=== PATIENT | male | born 1985 | race Caucasian/White ===

== ENCOUNTER 2019-02-26 15:01 | Inpatient (IN) | payer BC ==
[2019-02-26] MEDS ORDERED: ACETAMINOPHEN TAB 325 MG TAB PO PRN (16:06)
[2019-02-26] MEDS ORDERED: ZIPRASIDONE 20 MG VIAL IM PRN (16:06)
[2019-02-26] MEDS ORDERED: MAG HYDROX/AL HYDROX/SIMETH 30 ML CUP PO PRN (16:06)
[2019-02-26] MEDS ORDERED: MAGNESIUM HYDROXIDE 2,400 MG/10 ML CUP PO PRN (16:06)
[2019-02-26] MEDS ORDERED: LORazepam 1 MG TAB PO PRN (16:06)
[2019-02-26] MEDS: lamoTRIgine 100 MG TAB PO SCH (22:13)
[2019-02-27] MEDS ORDERED: SERTRALINE 100 MG TAB PO SCH (09:00)
[2019-02-27] MEDS: NICOTINE 14MG/24HR PATCH TRANSDERM SCH (09:08)
[2019-02-27] MEDS: lamoTRIgine 100 MG TAB PO SCH ×2 (09:08→20:42)
[2019-02-27 09:13] LABS: Basophils % (A) 0 %; Eosinophils # (A) 0.1 k/uL (0-0.7); Eosinophils % (A) 2 %; HCT 51.5 % (39.0-53.0); HGB 17.4 gm/dL (13.0-17.5); Lymphocytes % (A) 31 %; MCH 31.5 pg (25.0-35.0); MCHC 33.8 g/dL (31.0-37.0); MCV 93.2 fL (80.0-100.0); Mean Platelet Volume 6.9; Monocytes # (A) 0.5 k/uL (0-1.0); Monocytes % (A) 8 %; Neutrophils # (A) 3.6 k/uL (1.3-7.7); Neutrophils % (A) 57 %; Platelet Count 226 k/uL (150-450); RBC 5.53 m/uL (4.30-5.90); RDW 12.3 % (11.5-15.5); WBC 6.3 k/uL (3.8-10.6)
[2019-02-27 09:53] LABS: ALT 66 U/L (21-72); AST 33 U/L (17-59); African American GFR (CKD) >90 (>60 ml/min/1.73 sqM); Albumin 4.9 g/dL (3.5-5.0); Alkaline Phosphatase 68 U/L (38-126); Anion Gap 9 mmol/L; Bilirubin, Delta 0.1 mg/dL (0.0-0.2); Bilirubin,Unconjugated 0.5 mg/dL (0.0-1.1); Blood Urea Nitrogen 10 mg/dL (9-20); Calcium 9.6 mg/dL (8.4-10.2); Carbon Dioxide 26 mmol/L (22-30); Chloride 107 mmol/L (98-107); Cholesterol 220 mg/dL (<200); Glucose 97 mg/dL (74-99); HDL Cholesterol 37 mg/dL (40-60); Potassium 4.5 mmol/L (3.5-5.1); Sodium 142 mmol/L (137-145); Total Bilirubin 0.6 mg/dL (0.2-1.3); Triglycerides 405 mg/dL (<150)
[2019-02-27] MEDS: BREXPIPRAZOLE 4 MG PO SCH ×2 (10:09→11:30)
--- NOTE | 2019-02-27 13:33 | P.HP ---
Psychiatric H&P - . H&P Date: 02/27/19 History & Physical: Allergies Allergy/AdvReac Type Severity Reaction Status Date / Time No Known Allergies Allergy Verified 02/26/19 17:04 Vital Signs Temp 97.5 F L 02/27/19 06:59 Pulse 62 02/27/19 06:59 Resp 12 02/27/19 06:59 BP 136/63 02/27/19 06:59 Pulse Ox 99 02/26/19 15:33 Intake & Output 02/26/19 02/27/19 02/27/19 18:59 06:59 18:59 Weight 92.079 kg Laboratory Last Values WBC 6.3 k/uL (3.8-10.6) 02/27/19 09:02 RBC 5.53 m/uL (4.30-5.90) 02/27/19 09:02 Hgb 17.4 gm/dL (13.0-17.5) 02/27/19 09:02 Hct 51.5 % (39.0-53.0) 02/27/19 09:02 MCV 93.2 fL (80.0-100.0) 02/27/19 09:02 MCH 31.5 pg (25.0-35.0) 02/27/19 09:02 MCHC 33.8 g/dL (31.0-37.0) 02/27/19 09:02 RDW 12.3 % (11.5-15.5) 02/27/19 09:02 Plt Count 226 k/uL (150-450) 02/27/19 09:02 Neutrophils % 57 % 02/27/19 09:02 Lymphocytes % 31 % 02/27/19 09:02 Monocytes % 8 % 02/27/19 09:02 Eosinophils % 2 % 02/27/19 09:02 Basophils % 0 % 02/27/19 09:02 Neutrophils # 3.6 k/uL (1.3-7.7) 02/27/19 09:02 Lymphocytes # 2.0 k/uL (1.0-4.8) 02/27/19 09:02 Monocytes # 0.5 k/uL (0-1.0) 02/27/19 09:02 Eosinophils # 0.1 k/uL (0-0.7) 02/27/19 09:02 Basophils # 0.0 k/uL (0-0.2) 02/27/19 09:02 Sodium 142 mmol/L (137-145) 02/27/19 09:02 Potassium 4.5 mmol/L (3.5-5.1) 02/27/19 09:02 Chloride 107 mmol/L (98-107) 02/27/19 09:02 Carbon Dioxide 26 mmol/L (22-30) 02/27/19 09:02 Anion Gap 9 mmol/L 02/27/19 09:02 BUN 10 mg/dL (9-20) 02/27/19 09:02 Creatinine 1.01 mg/dL (0.66-1.25) 02/27/19 09:02 Est GFR (CKD-EPI)AfAm >90 (>60 ml/min/1.73 sqM) 02/27/19 09:02 Est GFR (CKD-EPI)NonAf >90 (>60 ml/min/1.73 sqM) 02/27/19 09:02 Glucose 97 mg/dL (74-99) 02/27/19 09:02 Calcium 9.6 mg/dL (8.4-10.2) 02/27/19 09:02 Total Bilirubin 0.6 mg/dL (0.2-1.3) 02/27/19 09:02 Conjugated Bilirubin 0.0 mg/dL (0.0-0.3) 02/27/19 09:02 Unconjugated Bilirubin 0.5 mg/dL (0.0-1.1) 02/27/19 09:02 Delta Bilirubin 0.1 mg/dL (0.0-0.2) 02/27/19 09:02 AST 33 U/L (17-59) 02/27/19 09:02 ALT 66 U/L (21-72) 02/27/19 09:02 Alkaline Phosphatase 68 U/L (38-126) 02/27/19 09:02 Total Protein 8.0 g/dL (6.3-8.2) 02/27/19 09:02 Albumin 4.9 g/dL (3.5-5.0) 02/27/19 09:02 Triglycerides 405 mg/dL (<150) H 02/27/19 09:02 Cholesterol 220 mg/dL (<200) H 02/27/19 09:02 LDL Cholesterol, Calc mg/dL (0-99) 02/27/19 09:02 HDL Cholesterol 37 mg/dL (40-60) L 02/27/19 09:02 TSH 0.841 mIU/L (0.465-4.680) 02/27/19 09:02 02/27/19 13:22 Identification: Patient is a 33-year-old male who is referred directly from his private psychiatrist's office due to increasing paranoid ideation. History of Present Illness: Patient states that he feels that someone at work is having what he describes as a "cold war" where he is sort of being stalked, he states that the coworker texts that the patient and is concerned that he is saying bad things about him in due to these bad comments the coworker may take stuff from him or worse yet that the police may take his home and car. He states that he has worked with this coworker for 13 years and he feels are other coworkers also said bad things to him and are engaging in a cold war against the patient. Patient states that if they do take stuff from him he will have to act and try to hurt them. Patient states that he is afraid the laws will be changed that if people say bad things about him or he is not good then they will take his things from him. Patient is unable to tell me how recently these thoughts became more prominent but states he's had them for a fair period of time. Patient states that his new coworkers are okay is just 3 or 4 coworkers that of been working with him for a number of years at [facility] that he is suspicious of. Patient states that he was initially diagnosed with schizophrenia at the age of 17 when he was admitted to a [facility] with auditory hallucinations d elusional ideation and paranoid ideation. Patient states he was placed on medication at that time and has been on medication since the age of 17. Patient states he has been on multiple antipsychotics in the past including Risperdal, Zyprexa, Seroquel, Latuda and Saphris and states that he is currently on rexulti and feels this is been the most effective for him. Patient states that he has been on Lamictal and the dose has been increased and he had concerns that the increasing dose of Lamictal was perhaps causing his paranoia. Patient states that he is also taking Zoloft because he has felt depressed in the past and has felt suicidal and anxious but denies any of those symptoms currently. Patient states that he sleeps for 4 hours at a time in 2 separate shifts because he works from 10 PM until 7 AM. He states he has been doing this for a number of years and that that has not changed recently. He reports that he is eating well at home. He reported no current suicidal ideation and states that he has never attempted suicide in the past or he reports that he has no current homicidal ideation and has never made any attempts to hurt anyone else. He states that he would only attempt to hurt someone if they took things from him. Patient does not endorse any symptoms of OCD or garima. Past Psychiatric History: Patient has one prior admission to a psychiatric hospital in [place] at the age of 17 and has been tried on multiple medications as stated above. His current medications are rexulti 4 mg in the morning, Zoloft 100 mg in the morning and the patient was taking Lamictal 150 mg in the morning and 100 mg at bedtime. Past Medical/Surgical History: Patient reports no current medical problems and no surgical history Family History: Patient states that he has a maternal uncle and aunt diagnosed with schizophrenia, denies any family history of substance or alcohol abuse and there is no history of completed suicides Social History: Patient was born and raised in [place] and his parents are both alive and he has 2 siblings. Patient states he completed high school and has been taking one class at a time at [employer] online. 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 He reports living alone in a house and takes care of his house drives his own car. He reports never having been and has no children and states he has one close friend. Patient denies any abuse history. Substance Use History: Patient denies any current or prior alcohol or drug use history Legal History: Patient denies Mental status: Appearance/Attitude: Patient is neatly and appropriately dressed, makes eye contact and is cooperative. Behavior: Patient is not displaying any psychomotor agitation or retardation. Speech/Language: Patient's speech is spontaneous of normal volume and rhythm and he is coherent. Thought Process: Patient is goal-directed there is no evidence of loose association or flight of ideas Thought Content: Patient denies any auditory or visual hallucinations but does discuss paranoid ideation regarding coworkers having a "cold war" against him, saying bad things about him and he fears that if people believe these bad things they will take belongings i.e. his house and/or car from him and this is what precipitated his visiting his psychiatrist yesterday and being admitted. Patient states he has had these thoughts for a while but they have been more intense recently. Patient reports that he has been sleeping and eating at home Suicidal/Homicidal Ideation: Patient denies any current suicidal or homicidal ideation Sensorium/Cognition: Patient is alert and oriented to person, place, and time and his recent and remote memory are grossly intact Mood/Affect: Patient's mood is restricted and his affect is slightly blunted Insight/Judgment: Patient's insight and judgment are fair Intellectual Functioning: Patient's intellectual functioning appears average Strength/Weakness: Patient is employed, has housing has been compliant with treatment and medication Assessment: Patient presents after having increasing paranoid ideation that coworkers are saying bad things about him that cause him to lose his home, house and other belongings and the patient states that should people take things from him he may have to retaliate. Patient states that he went to see his private psychiatrist because of these thoughts and was admitted to the hospital. Patient has been treated for schizophrenia and states that his current regimen of medications have been working well for him but was concerned that the Lamictal may have made him more paranoid. Patient is not endorsing any current depressive or anxiety symptoms. Patient had no plan to act on his thoughts of trying to hurt other people if they took things from him stating that that was only going to occur if things were taken from him. Patient states he has been compliant with medication and he has been working full-time at [facility]. Admission Diagnosis: Schizophrenia Plan: Patient was admitted on a voluntary basis, placed on routine observation and group and activity therapy were ordered. Patient was also ordered routine laboratory studies as well as a medical consultation. I spoke with his private psychiatrist regarding adjustment to his medications and we discussed increasing his Zoloft to 150 mg to see if this would assist in decreasing some of his anxiety about his coworkers as well as decreasing his Lamictal to 100 mg twice a day due to the patient's concerns that this is made him more suspicious and paranoid. Patient will also continue on Rexulti 4 mg in the morning as the patient feels that this is been beneficial for him. Patient and I reviewed the use and side effects of the medication and he was agreeable with this plan. Patient requires hospitalization to further stabilize his psychotic symptoms.
[2019-02-27 15:07] VITALS: BMI 31.8
--- NOTE | 2019-02-27 16:10 | P.CONS ---
History of Present Illness - Reason for Consult Hyperlipidemia - History of Present Illness 34-year-old male who was admitted seconded floor because of acute psychosis and schizophrenia. Patient had any fever chills nausea vomiting abdominal pain patient has a highly elevated the triglycerides because of which are calculated LDL is not available. Dietary counseling was provided no further intervention i s necessary for Hypertriglyceridemia except for dietary modifications. Patient's lipid profile fasting need to be checked in about a month after dietary interventions. Review of Systems REVIEW OF SYSTEMS: CONSTITUTIONAL: No fever, no malaise, no fatigue. HEENT: No recent visual problems or hearing problems. Denied any sore throat. CARDIOVASCULAR: No chest pain, orthopnea, PND, no palpitations, no syncope. PULMONARY: No shortness of breath, no cough, no hemoptysis. GASTROINTESTINAL: No diarrhea, no nausea, no vomiting, no abdominal pain. NEUROLOGICAL: No headaches, no weakness, no numbness. HEMATOLOGICAL: Denies any bleeding or petechiae. GENITOURINARY: Denies any burning micturition, frequency, or urgency. MUSCULOSKELETAL/RHEUMATOLOGICAL: Denies any joint pain, swelling, or any muscle pain. ENDOCRINE: Denies any polyuria or polydipsia. The rest of the 14-point review of systems is negative. Past Medical History Past Medical History: No Reported History Additional Past Medical History / Comment(s): schizophrenia History of Any Multi-Drug Resistant Organisms: None Reported Past Surgical History: No Surgical Hx Reported Past Anesthesia/Blood Transfusion Reactions: No Reported Reaction Past Psychological History: Schizophrenia Smoking Status: Never smoker - Past Family History Mother Family Medical History: No Reported History Additional Family Medical History / Comment(s): depression Father Family Medical History: Hyperlipidemia, Hypertension Medications and Allergies Home Medications Medication Instructions Recorded Confirmed Type Brexpiprazole [Rexulti] 4 mg PO DAILY 02/26/19 02/27/19 History Sertraline [Zoloft] 100 mg PO DAILY 02/26/19 02/27/19 History lamoTRIgine [LaMICtal] 100 mg PO DAILY 02/26/19 02/27/19 History lamoTRIgine [LaMICtal] 150 mg PO QAM 02/26/19 02/27/19 History Allergies Allergy/AdvReac Type Severity Reaction Status Date / Time No Known Allergies Allergy Verified 02/26/19 17:04 Physical Exam Vitals: Vital Signs Temp Pulse Resp BP 02/27/19 06:59 97.5 F L 62 12 136/63 PHYSICAL EXAMINATION: GENERAL: The patient is alert and oriented x3, not in any acute distress. Well developed, well nourished. HEENT: Pupils are round and equally reacting to light. EOMI. No scleral icterus. No conjunctival pallor. Normocephalic, atraumatic. No pharyngeal erythema. No thyromegaly. CARDIOVASCULAR: S1 and S2 present. No murmurs, rubs, or gallops. PULMONARY: Chest is clear to auscultation, no wheezing or crackles. ABDOMEN: Soft, nontender, nondistended, normoactive bowel sounds. No palpable organomegaly. MUSCULOSKELETAL: No joint swelling or deformity. EXTREMITIES: No cyanosis, clubbing, or pedal edema. NEUROLOGICAL: Gross neurological examination did not reveal any focal deficits. SKIN: No rashes. Results CBC & Chem 7: 02/27/19 09:02 02/27/19 09:02 Labs: Abnormal Lab Results - Last 24 Hours (Table) 02/27/19 Range/Units 09:02 Triglycerides 405 H (<150) mg/dL Cholesterol 220 H (<200) mg/dL HDL Cholesterol 37 L (40-60) mg/dL Assessment and Plan Plan: -Hypertriglyceridemia: Management as mentioned in the history -Schizophrenia further management as per primary service
[2019-02-27 20:59] LABS: Hemoglobin A1C 5.2 % (4.0-6.0)
[2019-02-28] MEDS: NICOTINE 14MG/24HR PATCH TRANSDERM SCH (09:21)
[2019-02-28] MEDS: lamoTRIgine 100 MG TAB PO SCH ×2 (09:22→20:47)
[2019-02-28] MEDS: SERTRALINE 50 MG TAB PO SCH (09:22)
[2019-02-28] MEDS: BREXPIPRAZOLE 4 MG PO SCH (09:23)
[2019-02-28] MEDS ORDERED: lamoTRIgine 25 MG TAB PO ONE (13:11)
--- NOTE | 2019-02-28 22:55 | PN ---
PROGRESS NOTE DATE OF SERVICE: 02/28/2019 CHIEF COMPLAINT: The patient had paranoid delusions, believing people at work were plotting against him. INTERVAL HISTORY: The patient had a quiet evening last night. He comes out on the unit. He has been appropriate in his interactions. He slept 4 1/2 hours last night. Today he has been up. He will attend most groups. He tends to be quiet in groups, though generally appropriate. Sometimes he can show a fairly bright mood. He continues to believe that his experiences particularly at work are reality. When we discussed these in details mostly he would say that what he anticipates is that in the future some bad things could happen based on influences of others, though he did not say that the nefarious events had in fact occurred. He talked about how there might be some influence on the police that somewhere along the line they may take his house and car. He was able to show a little insight into the idea that most of what seems to be distressing him are things he anticipates in the future. He noted that in concert with his outpatient physician, Dr. Walsh, there was discussion on maximizing his Lamictal. He has been able to be restarted on Rexulti. He appears to tolerate his psychotropic medications. MENTAL STATUS: Patient gave fairly good eye contact. Psychomotor activity was somewhat restless. He answered questions appropriately. His thoughts were clear and coherent. He talked a fair amount about issues that were bothering him especially at work. His affect was intense at times. His mood dysphoric. He seemed moderately distressed. There continued to be references to suspicions of plots and other paranoid themes. He was oriented and alert. Cognition was clear. He was ambulatory with normal gait and strength. There was no tremor, abnormal movements or rigidity. ASSESSMENT: I will continue the current diagnosis and treatment plan. I reviewed medications with the patient. He has been increased on his Zoloft as part of the initial treatment plan. He continues on Rexulti. I will increase his Lamictal from 100 mg twice a day to 150 mg twice a day which he indicated was an option he had talked about with his outpatient psychiatrist. We will continue to focus on stabilization and discharge planning. MMODL / IJN: [id number] /
[2019-03-01] MEDS: NICOTINE 14MG/24HR PATCH TRANSDERM SCH (09:30)
[2019-03-01] MEDS: lamoTRIgine 100 MG TAB PO SCH ×2 (09:31→20:58)
[2019-03-01] MEDS: SERTRALINE 50 MG TAB PO SCH (09:31)
[2019-03-01] MEDS: BREXPIPRAZOLE 4 MG PO SCH (09:32)
--- NOTE | 2019-03-01 22:42 | PN ---
PROGRESS NOTE DATE OF SERVICE: 03/01/2019. CHIEF COMPLAINT: The patient had paranoid delusions, believing people at work were plotting against him. INTERVAL HISTORY: The patient has been doing fair. He had a quiet evening last night. He had tends to keep to himself. He said he slept fairly well today. He has been out. He does attend groups. He seems to do fairly well in groups. He will pay attention. He interacts. He is appropriate in his manner. He can show all. He says that he thinks going up on the Lamictal has helped. He made some comments about how he previously had been on a higher dose of Lamictal along with these other psychotropic and it was unclear whether or not he thought it had helped before. He was not really able to provide specifics. It was noteworthy that as we talked, he made a comment about wanting to address some issues at work. He talked about leaving his job at [employer] mainly because he has had concerns about another worker who he feels harasses him. When I discussed in more detail, he was not clear as to what specific things this worker has done, though he discussed the things that he anticipates this worker could do. We talked about the option that he might look to transfer to another [employer] and then he talked about feeling that he thinks this worker could influence the staff at the other [employer] when he commented about looking for another job in a completely different organization altogether. He then even raised the specter that this person might be able to affect people around him in a negative way no matter where he goes. We talked about this issue as appearing more like a paranoid thinking than anything that would be rational or reasonable. It was not clear he really had insight into his how his thought process may be going awry. He was appropriate in his interactions. In the interview, he reports that he tolerates his psychotropic medications. He wondered about whether there was a different antipsychotic that could do better for him than the Rexulti or possibly in addition to Rexulti. MENTAL STATUS: Patient gave fairly good eye contact. Psychomotor activity was somewhat restless. He answered questions with brief responses. His thoughts were clear. At times, he rambled some. His affect was a little constricted. His mood reserved, but he seemed somewhat distressed. He clearly voiced paranoid delusions in his perceptions about a co-worker. Cognition was clear. ASSESSMENT: I will continue the current diagnosis and treatment plan. I will continue psychotropic medications the same. The patient plans to call his call Dr. Walsh's office tomorrow to see about setting up an appointment. I discussed discharge planning issues and suggested that he might be able to be discharge by mid week. I discussed psychotropic medication issues with the patient including possibly going up higher on his Lamictal as one option. I also talked at length about the possibility of his getting on clozapine. If he has not shown good benefit to other medications that might be an option for him to discuss with Dr. Walsh upon discharge. We will continue to focus on stabilization and discharge planning. BHUMI / MATTN: [id number] /
[2019-03-02] MEDS: BREXPIPRAZOLE 4 MG PO SCH (08:25)
[2019-03-02] MEDS: SERTRALINE 50 MG TAB PO SCH (08:26)
[2019-03-02] MEDS: lamoTRIgine 100 MG TAB PO SCH ×2 (08:27→20:53)
[2019-03-02] MEDS: NICOTINE 14MG/24HR PATCH TRANSDERM SCH (09:03)
--- NOTE | 2019-03-02 11:14 | P.PN ---
Progress Note - Text Progress Note Date: 03/02/19 Interval History: Patient is a 33-year-old male who was seen today and he reports that he thinks the increase in the Lamictal has been helping, patient states that his thoughts about the "cold war" or less intense than they were on Saturday when I saw him. He states that his concerns about coworkers management at [employer] are less than they were but they still are present. He states that he has not had any "outbursts" today so far but states that he may and this is in regard to the cold war that he refers to. Patient states he continues to have suspicions that this coworker saying bad things about him and is concerned that his belongings will be confiscated. He states that these thoughts and concerns are less intense but still present. Mental Status: Appearance/Attitude: Patient is neatly and appropriately dressed, makes eye contact and is cooperative Behavior: Patient does not exhibit any psychomotor agitation or retardation Speech/Language: Patient's speech is spontaneous of normal volume and rhythm and he is coherent Thought Process: Patient is goal-directed there is no evidence of loose association or flight of ideas Thought Content: Patient denies any auditory or visual hallucinations and he continues to verbalize concerns about a "cold war" which he describes as cowor kers and even potentially management at work saying bad things about him that may result in his belongings, home and car being confiscated. He states he has "outbursts" about this and states that this is less frequent with the increase in Lamictal. He now thinks that the Lamictal has been beneficial. Patient reports that he is sleeping and eating well. Suicidal/Homicidal Ideation: Patient denies any current suicidal or homicidal ideation, he states that his outbursts are those times when he is having the thoughts that people are saying bad things against him and that if they do something he may have to retaliate Sensorium/Cognition: Patient is alert and oriented to person, place, and time and his recent and remote memory are grossly intact Mood/Affect: Patient's mood is slightly restricted his affect is slightly blunted Insight/Judgment: Patient's insight and judgment are fair Assessment: Reports that with the Lamictal being increased he now thinks that it is been beneficial. He states that he has outbursts about the "cold war" that coworkers are having against him which he states he thinks is going on but is not sure are less frequent and intense. Patient continues to fear that people are saying bad things about him and that this will result in belongings being confiscated he states he would have to retaliate if that occurred. He states he has no proof that anyone is said bad things about him and is unsure that anyone really has. Patient has been attending groups and activities and reports no difficulties with sleep or appetite Plan: Will continue rexulti 4 mg daily, we'll increase the patient's Zoloft to 200 mg daily to see if this continues to further assist with his concerns as well as for now continue the Lamictal at 300 mg daily as it was just increased o steve the weekend. Patient continues to require hospitalization to further stabilize his psychotic symptoms.
[2019-03-03] MEDS: lamoTRIgine 100 MG TAB PO SCH ×2 (08:44→21:00)
[2019-03-03] MEDS: BREXPIPRAZOLE 4 MG PO SCH (08:44)
[2019-03-03] MEDS: SERTRALINE 100 MG TAB PO SCH (08:44)
[2019-03-03] MEDS: NICOTINE 14MG/24HR PATCH TRANSDERM SCH (08:45)
--- NOTE | 2019-03-03 12:37 | P.PN ---
Progress Note - Text Progress Note Date: 03/03/19 Interval History: Patient is a 33-year-old male who was seen today and he reports that he continues to have thoughts about the "war". States that he doesn't think medication is going to help with this. He states that these thoughts aren't real because there are not currently happening and then stated that as soon as he goes back to work the war will occur. 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 He stated that there were cameras in the store and that they have been spying on him to see if he is doing bad things or saying bad things. Patient stated that he then thought that he should not go back to work and quit his job because then the war wouldn't occur. Mental Status: Appearance/Attitude: Patient is neatly and appropriately dressed, makes eye contact and is cooperative Behavior: Patient does not display any psychomotor agitation or retardation. Speech/Language: Patient's speech is spontaneous of normal volume and rhythm and he is coherent Thought Process: Patient is goal-directed there is no evidence of loose association or flight of ideas Thought Content: Patient denies any auditory or visual hallucination and continues to discuss his concerns about a "war" that will occur if he returns to work, he fears that a coworker and even the merchandising execution manager of the store will say bad things about him which will then cause him to lose longings. Patient states that he knows it's not real now but fears that once he returns to work the war will occur immediately causing the patient to suggest that perhaps he should quit his job. Patient is eating and slept about 5 hours last night. Suicidal/Homicidal Ideation: Patient denies any current suicidal or homicidal ideation Sensorium/Cognition: Patient is alert and oriented to person, place, and time and his recent and remote memory are grossly intact Mood/Affect: Patient's mood is restricted and his affect is blunted Insight/Judgment: Patient's insight and judgment are fair Assessment: Patient is compliant with medication and now fears that the medications haven't made any change in his thoughts. Patient continues to express concerns that a "war" will occur which he refers to people making comments about him, that he is bad and that this will cause a war evening that people the police will come and take his belongings. He states that it's not real now because it's not happening because he is not at work but fears that as soon as he returns to work the war will start. He states that there are cameras at work and fears that people including the coworker and now the store merchandiser are saying bad things about him. Patient suggested that perhaps he should not return to his job at [employer]. Patient is compliant with medication has been attending groups and activities. Plan: I had spoken to his outpatient psychiatrist Dr. Rock and his Lamictal has been increased to a total of 300 mg twice a day and his Zoloft increased to 200 mg a day with no change in his delusional ideation regarding people saying bad things about him, then taking his belongings and his need to protect himself and he voiced thoughts of hurting other people if this should occur. Patient is now also verbalizing that he should quit his job. Patient has been tried on Abilify, Latuda, Geodon, Saphris, Risperdal, Haldol with either side effects or minimal response and appears that Jamie salty has been the most beneficial for him to date. I had spoken with his outpatient psychiatrist about adding Clozaril if this delusional ideation does not remit with the increase in Lamictal and Zoloft. Patient continues to have his delusional idea tion but is now also wanting to quit his job, patient has worked there for 13 years. I spoke with the patient about the addition of Clozaril to his current medication regimen to see if we could augment the effects and decrease these delusional thoughts. I reviewed the use and side effects of the medication with him and he will begin 12-1/2 mg of Clozaril at bedtime his CBC is okay to begin. We will evaluate patient's response to the Clozaril, he may be continued on 2 antipsychotics at the time of discharge and further adjustment of his medications can be made as an outpatient. At this time patient continues to require inpatient hospitalization to further stabilize his psychotic symptoms.
[2019-03-03] MEDS: cloZAPine 25 MG TAB PO SCH (20:59)
[2019-03-04] MEDS: lamoTRIgine 100 MG TAB PO SCH ×2 (07:51→08:39)
[2019-03-04] MEDS: BREXPIPRAZOLE 4 MG PO SCH (07:51)
[2019-03-04] MEDS: SERTRALINE 100 MG TAB PO SCH (07:52)
[2019-03-04] MEDS: NICOTINE 14MG/24HR PATCH TRANSDERM SCH (08:39)
[2019-03-04 10:38] LABS: Basophils % (A) 0 %; Eosinophils # (A) 0.1 k/uL (0-0.7); Eosinophils % (A) 1 %; HCT 49.5 % (39.0-53.0); HGB 16.8 gm/dL (13.0-17.5); Lymphocytes # (A) 2.1 k/uL (1.0-4.8); Lymphocytes % (A) 35 %; MCH 31.4 pg (25.0-35.0); MCV 92.3 fL (80.0-100.0); Mean Platelet Volume 7.1; Monocytes # (A) 0.5 k/uL (0-1.0); Monocytes % (A) 8 %; Neutrophils # (A) 3.2 k/uL (1.3-7.7); Neutrophils % (A) 53 %; Platelet Count 210 k/uL (150-450); RBC 5.36 m/uL (4.30-5.90); RDW 13.8 % (11.5-15.5); WBC 6.1 k/uL (3.8-10.6)
--- NOTE | 2019-03-04 12:06 | P.PN ---
Progress Note - Text Progress Note Date: 03/04/19 Interval History: Patient is a 33-year-old male who was seen today and he reports that he thinks he's feeling a little calmer, he reported that he still thinks the "war" is real but he thinks he could walk away from, he states that he is not having the outbursts in his head as frequently as he was before. Patient reported no side effects from the Clozaril last evening, but continues to state that he is concerned if coworkers say bad things about him his belongings for example his home and car will be taken away from him. Mental Status: Appearance/Attitude: Patient is neatly and appropriately dressed, makes intermittent eye contact and is cooperative Behavior: Patient does not exhibit any psychomotor agitation or retardation. Speech/Language: Patient's speech is spontaneous of normal volume and rhythm and he is coherent Thought Process: Patient is goal-directed he is no evidence of loose association or flight of ideas Thought Content: Patient denies any auditory or visual hallucinations but continues to discuss having outbursts in his head regarding the "war" that he thinks will occur if he returns to work, he states that people are saying bad things about him which he fears will cause him to have belongings confiscated. Patient states that he is feeling a little calmer about this and that the outbursts are less frequent but still thinks the war is real. He states that he's not sure about quitting work but is still concerned about coworkers saying bad things about him. Patient is sleeping and eating. Suicidal/Homicidal Ideation: Patient denies any current suicidal or homicidal ideation Sensorium/Cognition: Patient is alert and oriented to person, place, and time a nd his recent and remote memory grossly intact Mood/Affect: Patient's mood remains restricted and his affect blunted Insight/Judgment: Patient's insight and judgment are fair Assessment: Patient reports that he still has thoughts that the war is real, he is feeling calmer and states that the outbursts in his head are less frequent. He is sleeping and eating and attending groups and activities. Patient reports no side effects from the addition of Clozaril at bedtime. Patient did not verbalize that he wanted to quit his job today, continues to feel that the war is real and is unable to accept that people would not be confiscating his home and car. Plan: Patient will continue on rexulti 4 mg daily, Zoloft 200 mg daily and Lamictal 150 mg twice a day and Clozaril 12.5 mg at bedtime patient and I discussed increasing the Clozaril to try to target his thoughts regarding the war and his coworkers. Patient had a CBC today which revealed no abnormalities. Patient continues to require hospitalization to stabilize his psychotic symptoms.
[2019-03-04] MEDS: cloZAPine 25 MG TAB PO SCH (21:32)
[2019-03-05] MEDS: lamoTRIgine 100 MG TAB PO SCH ×2 (08:23→21:01)
[2019-03-05] MEDS: NICOTINE 14MG/24HR PATCH TRANSDERM SCH (08:23)
[2019-03-05] MEDS: SERTRALINE 100 MG TAB PO SCH (08:24)
[2019-03-05] MEDS: BREXPIPRAZOLE 4 MG PO SCH (08:25)
--- NOTE | 2019-03-05 12:18 | P.PN ---
Progress Note - Text Progress Note Date: 03/05/19 Interval History: Patient is a 33-year-old male who was seen today and he reports that his thoughts about "war" are less and that he hasn't had any outbursts about that. Patient describes these outbursts as thoughts that come to him. Patient states that he is beginning to question whether his thoughts about this war and the consequences are real or not. Patient states that he is no longer considering stopping his job. He feels that the closet rules been helpful is not reporting any side effects. Patient reports that his sleep was okay. Mental Status: Appearance/Attitude: Patient is neatly and appropriately dressed, makes eye contact and is cooperative. Behavior: Patient does not exhibit any psychomotor agitation or retardation. Speech/Language: Patient's speech is spontaneous of normal volume and rhythm and he is coherent. Thought Process: Patient is goal-directed there is no evidence of loose association or flight of ideas. Thought Content: Patient denies any auditory or visual hallucinations and states that the thoughts he has about "war" by his peers making negative comments about him are much less and he is not having what he describes as "outbursts" anymore. He states he is beginning to question whether his thoughts about this war are real or not. Patient states he is no longer considering quitting his job. Patient reports that he sleeping and eating well Suicidal/Homicidal Ideation: Patient denies any current suicidal or homicidal ideation Sensorium/Cognition: Patient is alert and oriented to person, place, and time and his recent and remote memory are grossly intact Mood/Affect: Patient's mood is pleasant and his affect is slightly blunted Insight/Judgment: Patient's insight and judgment are fair Assessment: Patient reports that the medication has been beneficial in decreasing his thoughts about people saying bad things about him, he is no longer having any thoughts that he will have his belongings taken and therefore is not having any thoughts that he needs to act on that. He is beginning to question whether these thoughts are real or not and states he is no longer considering stopping his job because of them. Patient reports that he is been attending groups and activities and has been sleeping and eating well. He reports no side effects from his current medications. Plan: Patient will continue on rexulti 4 mg a day, Zoloft 200 mg a day, Lamictal 150 mg twice a day and will increase his Clozaril to 25 mg at bedtime tonight to target his continued psychotic symptoms. Patient and I discussed continuing with the closet real to see if we could target his psychotic symptoms and consider discharge early next week if these have been decreased and prominence.
[2019-03-05] MEDS: cloZAPine 25 MG TAB PO SCH (21:01)
[2019-03-06] MEDS: SERTRALINE 100 MG TAB PO SCH (09:01)
[2019-03-06] MEDS: lamoTRIgine 100 MG TAB PO SCH ×2 (09:01→21:14)
[2019-03-06] MEDS: BREXPIPRAZOLE 4 MG PO SCH (09:03)
[2019-03-06] MEDS: NICOTINE 14MG/24HR PATCH TRANSDERM SCH (09:03)
--- NOTE | 2019-03-06 10:25 | P.PN ---
Progress Note - Text Progress Note Date: 03/06/19 Interval History: Patient is a 33-year-old male who was seen today and he reports that he has not had as many thoughts about "the war", states that they are there as they were on admission and he knows that they are not real and only thoughts that he is had. He states that he is not having outbursts about them, he states he was at work at times when having the thoughts getting angry and making verbal statements about it. Patient is not considering quitting his job at [employer] due to it and states that he hasn't been thinking about them nearly as frequently as he was in the past. Patient states that they are decreasing each day. Patient reports no side effects from the closet room and states that he woke up feeling refreshed this morning. Mental Status: Appearance/Attitude: Patient is neatly and appropriately dressed, makes eye contact and was cooperative. Behavior: Patient is not exhibiting any psychomotor agitation or retardation. Speech/Language: Patient's speech is of normal volume and rhythm he is spontaneous and coherent Thought Process: Patient is goal-directed there is no evidence of loose association or flight of ideas Thought Content: Patient denies any auditory or visual hallucinations and he is questioning whether the thoughts that he had about war from coworkers making bad statements about him are real or not. He states that he is not having these thoughts nearly as frequently as he was before, stating that this morning they are almost completely gone. He states that he hasn't had any outbursts or urges to make verbalizations about them as he was when he was working at [employer]. He is no longer considering leaving his job there. Patient states that he slept well last night and felt refreshed this morning. He is eating well. Suicidal/Homicidal Ideation: Patient denies any current suicidal or homicidal ideation Sensorium/Cognition: Patient is alert and oriented to person, place, and time and his recent and remote memory are grossly intact. Mood/Affect: Patient's mood is pleasant and his affect is slightly blunted. Insight/Judgment: His insight and judgment are fair. Assessment: Patient states that the thoughts he has about people making bad statements about him are decreasing in frequency and he states that he is questioning and knows that they are real. He states he is no longer having outbursts about them and states that when he was at work he would sometimes yell out about thoughts. He is no longer having the thoughts that he may need to act against people if they common take things away from him. Patient states he felt refreshed this morning when he woke up and is not reporting any side effects from the closet roll. Patient has been attending groups and activity and states that his appetite is good. Plan: Patient will continue on rexulti 4 mg daily, Lamictal 150 mg twice a day and Zoloft 200 mg daily and Clozaril 25 mg at bedtime. Patient and I discussed discharge on Saturday should be thoughts continue to decrease over the weekend, that he doesn't feel that he's having these outbursts and doesn't have the thoughts that he may need to act if people start to take things from him. Patient was agreeable with this plan.
[2019-03-06] MEDS: cloZAPine 25 MG TAB PO SCH (21:15)
[2019-03-07] MEDS: NICOTINE 14MG/24HR PATCH TRANSDERM SCH (08:16)
[2019-03-07] MEDS: lamoTRIgine 100 MG TAB PO SCH ×2 (08:17→20:54)
[2019-03-07] MEDS: SERTRALINE 100 MG TAB PO SCH (08:18)
[2019-03-07] MEDS: BREXPIPRAZOLE 4 MG PO SCH (08:18)
--- NOTE | 2019-03-07 11:04 | P.PN ---
Progress Note - Text Interval history: The patient is found in the hallway he follows me to an interview room. He was admitted from Dr. Walsh's office for symptoms of psychosis. He states that he thought there was a "cold war" between him and coworkers. He states that things are being set about him and he was fearful that it would build to a physical confrontation. He feels less convicted in terms of those thoughts and is hoping that claws role helps improve the situation further. He has no questions or concerns regarding his medications he is describing no side effects. He indicates he is attending groups. He indicates appetite is stable. Staff reported he slept 7 hours last night. Mental status exam: The patient is alert he is a male appearing his stated age. He is dressed in his own clothing wearing a T-shirt and shorts. Eye contact is appropriate speech is fluent he provides answers to questions asked. There is not much spontaneous speech. Affect is constricted. He demonstrates no tangential thinking loose associations or flight of ideas. He does not appear hypomanic or manic. He reports no suicidal or homicidal ideation intent or plan. He is reporting no auditory or visual hallucinations. He continues to have some residual paranoid thoughts but he feels that those are attenuating. Insight and judgment improving. He demonstrates no verbal or physical aggressiveness he demonstrates no involuntary repetitive movements. Plan: The patient will continue on his current psychotropic medications. We wi ll monitor him for safety and encourage full participation in the milieu. He expects family members will visit this evening we will look for input from them regarding his approximation to his known baseline function. Vital signs reviewed.
[2019-03-07] MEDS: cloZAPine 25 MG TAB PO SCH (20:54)
[2019-03-08 06:47] VITALS: RESP 16
[2019-03-08] MEDS: BREXPIPRAZOLE 4 MG PO SCH (08:46)
[2019-03-08] MEDS: SERTRALINE 100 MG TAB PO SCH (08:46)
[2019-03-08] MEDS: lamoTRIgine 100 MG TAB PO SCH ×2 (08:47→20:50)
--- NOTE | 2019-03-08 12:34 | P.PN ---
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 He states that his mood is good and this is the best he has felt in a while. He continues to have feelings that there may be demons or angels around him especially when things "move" he states it's like weekend that he will perceive. He states "I don't know about the people upstairs". Overall he feels symptoms have been improved he states auditory hallucinations are significantly reduced. Notes from the family meeting were reviewed. Mental status exam: The patient is an overweight male appearing his stated age. He is dressed in his own clothing. Hygiene and grooming are adequate. He has a bright smiling affect he is pleasant and cooperative. He is reporting no suicidal or homicidal ideation intent or plan. He reports no active auditory hallucinations at this time no visual hallucinations. He indicates that he may sense movement around him and wonders what back and be, possibly angels or demons. He makes a nonspecific reference to people upstairs out of some concern. He demonstrates no verbal or physical aggressiveness he demonstrates no involuntary repetitive movements. Insight and judgment improving. He is oriented to person place and date. Plan: The patient will continue on his current medications we will titrate the Clozaril to 50 mg at bedtime. We will monitor him for safety and encourage full participation milieu. It's anticipated that he may be discharged tomorrow. Vital signs reviewed.
[2019-03-08] MEDS ORDERED: cloZAPine 25 MG TAB PO SCH (21:00)
[2019-03-09 06:41] VITALS: BP 108/59; PULSE 69; TEMP 98
[2019-03-09] MEDS: lamoTRIgine 100 MG TAB PO SCH (09:32)
[2019-03-09] MEDS: SERTRALINE 100 MG TAB PO SCH (09:32)
[2019-03-09] MEDS: BREXPIPRAZOLE 4 MG PO SCH (09:34)
--- NOTE | 2019-03-09 09:38 | P.DS ---
Providers Date of admission: 02/26/19 15:04 Expected date of discharge: 03/09/19 Attending physician: Keli Parikh MD Consults: 02/26/19 16:57 Consult Physician Routine Consulting Provider: Florina Flynn Consult Reason/Comments: [facility] P medical managment Do you want consulting provider notified?: Yes [facility] Diagnosis: Schizophrenia Reason for Admission: Patient is a 33-year-old male who is referred directly from his private psychiatrist's office due to increasing paranoid ideation. Patient states that he feels that someone at work is having what he describes as a "cold war" where he is sort of being stalked, he states that the coworker texts that the patient and is concerned that he is saying bad things about him in due to these bad comments the coworker may take stuff from him or worse yet that the police may take his home and car. He states that he has worked with this coworker for 13 years and he feels are other coworkers also said bad things to him and are engaging in a cold war against the patient. Patient states that if they do take stuff from him he will have to act and try to hurt them. Neymar marsh states that he is afraid the laws will be changed that if people say bad things about him or he is not good then they will take his things from him. Patient is unable to tell me how recently these thoughts became more prominent but states he's had them for a fair period of time. Patient states that his new coworkers are okay is just 3 or 4 coworkers that of been working with him for a number of years at [employer] that he is suspicious of. Patient states that he was initially diagnosed with schizophrenia at the age of 17 when he was admitted to a [facility] with auditory hallucinations delusional ideation and paranoid ideation. Patient states he was placed on medication at that time and has been on medication since the age of 17. Patient states he has been on multiple antipsychotics in the past including Risperdal, Zyprexa, Seroquel, Latuda and Saphris and states that he is currently on rexulti and feels this is been the most effective for him. Patient states that he has been on Lamictal and the dose has been increased and he had concerns that the increasing dose of Lamictal was perhaps causing his paranoia. Patient states that he is also taking Zoloft because he has felt depressed in the past and has felt suicidal and anxious but denies any of those symptoms currently. Patient states that he sleeps for 4 hours at a time in 2 separate shifts because he works from 10 PM until 7 AM. He states he has been doing this for a number of years and that that has not changed recently. He reports that he is eating well at home. He reported no current suicidal ideation and states that he has never attempted suicide in the past or he reports that he has no current homicidal ideation and has never made any attempts to hurt anyone else. He states that he would only attempt to hurt someone if they took things from him. Patient does not endorse any symptoms of OCD or garima. Mental status on Admission: Appearance/Attitude: Patient is neatly and appropriately dressed, makes eye contact and is cooperative. Behavior: Patient is not displaying any psychomotor agitation or retardation. Speech/Language: Patient's speech is spontaneous of normal volume and rhythm and he is coherent. Thought Process: Patient is goal-directed there is no evidence of loose association or flight of ideas Thought Content: Patient denies any auditory or visual hallucinations but does discuss paranoid ideation regarding coworkers having a "cold war" against him, saying bad things about him and he fears that if people believe these bad things they will take belongings i.e. his house and/or car from him and this is what precipitated his visiting his psychiatrist yesterday and being admitted. Patient states he has had these thoughts for a while but they have been more intense recently. Patient reports that he has been sleeping and eating at home Suicidal/Homicidal Ideation: Patient denies any current suicidal or homicidal ideation Sensorium/Cognition: Patient is alert and oriented to person, place, and time and his recent and remote memory are grossly intact Mood/Affect: Patient's mood is restricted and his affect is slightly blunted Insight/Judgment: Patient's insight and judgment are fair Hospital Course: Patient was admitted on a voluntary basis, placed on routine observation in group and activity therapy were ordered. Patient also had routine laboratory studies as well as a medical consultation. Patient was continued on his Zoloft, Lamictal and Rexulti. After discussion with his private psychiatrist his Lamictal dose was decreased to 100 mg twice a day, he was Zoloft dose was increased to 200 mg and the patient continued to report thoughts that coworkers are saying bad things about him, that this would cause him to have outbursts of anger and fear that his belongings would be taken from him. Patient's Lamictal was increased back to 150 mg twice a day and the patient's symptoms continued with little change and he was continued on Rexulti at 4 mg a day. Patient and I discussed as I had also discussed with his private psychiatrist the addition of Clozaril as the patient been tried on multiple prior antipsychotics with either side effects or no response. Patient was begun on Clozaril at 12-1/2 mg at bedtime and titrated to a dose of 50 mg at bedtime with a marked decrease in his thoughts about what he described as a "war", he reported no longer having outbursts of anger which were never evident here on the unit but he states that when he was at work he would have these outbursts and make verbal statements of anger. Patient states that he was not hearing voices, states that he was ready to return to work, is not feeling that he needed to defend himself or had thoughts of hurting others in response to these thoughts that he had been having the people were saying bad things about him. Patient reported no side effects from the medication. Patient was attending groups and activities and was sleeping and eating well. Patient was felt to be ready for discharge and will return to his own home. Patient's family brought in a list of supplements that the patient was taking at home and I discussed with him that he should only be taking a multivitamin without iron and that the other supplements should be stopped unless one of his doctors has instructed him to take a supplement. Allergies No Known Allergies Allergy (Verified 02/26/19 17:04) Laboratory Last Values WBC 6.1 k/uL (3.8-10.6) 03/04/19 09:54 RBC 5.36 m/uL (4.30-5.90) 03/04/19 09:54 Hgb 16.8 gm/dL (13.0-17.5) 03/04/19 09:54 Hct 49.5 % (39.0-53.0) 03/04/19 09:54 MCV 92.3 fL (80.0-100.0) 03/04/19 09:54 MCH 31.4 pg (25.0-35.0) 03/04/19 09:54 MCHC 34.0 g/dL (31.0-37.0) 03/04/19 09:54 RDW 13.8 % (11.5-15.5) 03/04/19 09:54 Plt Count 210 k/uL (150-450) 03/04/19 09:54 Neutrophils % 53 % 03/04/19 09:54 Lymphocytes % 35 % 03/04/19 09:54 Monocytes % 8 % 03/04/19 09:54 Eosinophils % 1 % 03/04/19 09:54 Basophils % 0 % 03/04/19 09:54 Neutrophils # 3.2 k/uL (1.3-7.7) 03/04/19 09:54 Lymphocytes # 2.1 k/uL (1.0-4.8) 03/04/19 09:54 Monocytes # 0.5 k/uL (0-1.0) 03/04/19 09:54 Eosinophils # 0.1 k/uL (0-0.7) 03/04/19 09:54 Basophils # 0.0 k/uL (0-0.2) 03/04/19 09:54 Sodium 142 mmol/L (137-145) 02/27/19 09:02 Potassium 4.5 mmol/L (3.5-5.1) 02/27/19 09:02 Chloride 107 mmol/L (98-107) 02/27/19 09:02 Carbon Dioxide 26 mmol/L (22-30) 02/27/19 09:02 Anion Gap 9 mmol/L 02/27/19 09:02 BUN 10 mg/dL (9-20) 02/27/19 09:02 Creatinine 1.01 mg/dL (0.66-1.25) 02/27/19 09:02 Est GFR (CKD-EPI)AfAm >90 (>60 ml/min/1.73 sqM) 02/27/19 09:02 Est GFR (CKD-EPI)NonAf >90 (>60 ml/min/1.73 sqM) 02/27/19 09:02 Glucose 97 mg/dL (74-99) 02/27/19 09:[address] Glu mg/dL 103 02/27/19 09:02 Hemoglobin A1c 5.2 % (4.0-6.0) 02/27/19 09:02 Calcium 9.6 mg/dL (8.4-10.2) 02/27/19 09:02 Total Bilirubin 0.6 mg/dL (0.2-1.3) 02/27/19 09:02 Conjugated Bilirubin 0.0 mg/dL (0.0-0.3) 02/27/19 09:02 Unconjugated Bilirubin 0.5 mg/dL (0.0-1.1) 02/27/19 09:02 Delta Bilirubin 0.1 mg/dL (0.0-0.2) 02/27/19 09:02 AST 33 U/L (17-59) 02/27/19 09:02 ALT 66 U/L (21-72) 02/27/19 09:02 Alkaline Phosphatase 68 U/L (38-126) 02/27/19 09:02 Total Protein 8.0 g/dL (6.3-8.2) 02/27/19 09:02 Albumin 4.9 g/dL (3.5-5.0) 02/27/19 09:02 Triglycerides 405 mg/dL (<150) H 02/27/19 09:02 Cholesterol 220 mg/dL (<200) H 02/27/19 09:02 LDL Cholesterol, Calc mg/dL (0-99) 02/27/19 09:02 HDL Cholesterol 37 mg/dL (40-60) L 02/27/19 09:02 TSH 0.841 mIU/L (0.465-4.680) 02/27/19 09:02 Discharge Mental Status: Appearance/Attitude: Patient is neatly and appropriately dressed, makes eye contact and is cooperative Behavior: Patient does not display any psychomotor agitation or retardation. Speech/Language: Patient's speech is spontaneous of normal volume and rhythm and he is coherent Thought Process: Patient is goal-directed no evidence of loose association or flight of ideas Thought Content: Patient denies any auditory or visual hallucinations and states that he is no longer having thoughts that coworkers are making statements about him that are bad that will cause him to have his belongings confiscated. He states that he no longer feels as though he is having outbursts of anger. Patient reports that he is ready to go back to work and is no longer discussing not returning to his prior job and no longer having any discussion about needing to hurt someone if they try to take his belongings from him. Patient states that he sleeping and eating well and reported no side effects from the medicat ion Suicidal/Homicidal Ideation: Patient denies any current suicidal or homicidal ideation Sensorium/Cognition: Patient is alert and oriented to person, place, and time and his recent and remote memory are grossly intact Mood/Affect: Patient's mood is stable and his affect is slightly blunted Insight/Judgment: Patient's insight and judgment are fair Risk Assessment: Patient's risk for readmission as low as he is compliant with medication, compliant with outpatient care Discharge Plan: Patient will return to live in his own home, he will follow-up with his private psychiatrist, Dr. Rock and he will continue on Zoloft 200 mg daily, Lamictal 150 mg twice a day, Clozaril 50 mg at his bedtime, and rexulti 4 mg daily. Patient was given prescriptions for all of his medications as well as for a repeat what count with differential for Saturday, March 11. Patient was encouraged to not continue with supplements other than a multivitamin without iron and to discuss any supplements he takes with his PCP and psychiatrist. Patient was encouraged to be compliant with outpatient care and medications and to avoid any alcohol or drugs. Patient Condition at Discharge: Stable Plan - Discharge Summary Discharge Rx Participant: No New Discharge Prescriptions: New cloZAPine [Clozaril] 50 mg PO HS #14 tab lamoTRIgine [LaMICtal] 150 mg PO BID #28 tab Sertraline [Zoloft] 200 mg PO DAILY #28 tab Continue Brexpiprazole [Rexulti] 4 mg PO DAILY #14 tablet Discontinued lamoTRIgine [LaMICtal] 100 mg PO DAILY lamoTRIgine [LaMICtal] 150 mg PO QAM Sertraline [Zoloft] 100 mg PO DAILY Discharge Medication List Brexpiprazole [Rexulti] 4 mg PO DAILY #14 tablet 03/09/19 [Rx] Sertraline [Zoloft] 200 mg PO DAILY #28 tab 03/09/19 [Rx] cloZAPine [Clozaril] 50 mg PO HS #14 tab 03/09/19 [Rx] lamoTRIgine [LaMICtal] 150 mg PO BID #28 tab 03/09/19 [Rx] Follow up Appointment(s)/Referral(s): [facility] [Outside] - 03/16/19 8:20 am (Dr Walsh ) Ambulatory/Diagnostic Orders: Complete Blood Count w/diff [LAB.AMB] Time Frame: 03/11/19, Location: None Selected Patient Instructions/Handouts: Suicide Prevention (DC) Activity/Diet/Wound Care/Special Instructions: Activity and diet as tolerated. Avoid the use of street drugs and alcohol. Take all medications as prescribed. When you are in need of refills on your medications please contact your medical provider and/or outpatient psychiatrist to have this done. Please go to scheduled outpatient appointment for aftercare treatment. If symptoms return or become worse, call the crisis line at and/or go to the nearest emergency room for evaluation. Per medical doctor, have a fasting lipid profile completed in approximately one month upon discharge due to your triglycerides being elevated. Discharge Disposition: HOME SELF-CARE
== END 2019-03-09 13:14 | disposition home or self-care (01) | DRG 885 ==
LOC: 3MHU 15:04
PROVIDERS: ADMIT Psychiatry & Neurology Psychiatry; ATTEND Psychiatry & Neurology Psychiatry
DX: F20.9 Schizophrenia, unspecified (principal); E78.1 Pure hyperglyceridemia; E78.5 Hyperlipidemia, unspecified; F60.0 Paranoid personality disorder; F41.9 Anxiety disorder, unspecified; Z79.899 Other long term (current) drug therapy; Z71.3 Dietary counseling and surveillance; Z81.8 Family history of other mental and behavioral disorders; Z82.49 Family history of ischemic heart disease and other diseases of the circulatory system; Z83.49 Family history of other endocrine, nutritional and metabolic diseases
CPT/HCPCS: 80053; 80061; 82248; 83036; 84443; 85025

== ENCOUNTER → 2024-01-14 | Day surgery (SDC) | payer MEDICARE, OTHER ==
[~2024-01-14] MED LIST: LIDOCAINE 1% INJ 10MG/ML (20 ML MDV) ONE; PROPOFOL 10 MG/ML 20 ML VIAL IV ONE
[2024-01-14] MEDS: LACTATED RINGERS 1,000 ML IV SCH (08:34)
--- NOTE | 2024-01-14 09:32 | P.PCN ---
Date of Procedure: 01/14/24 Procedure(s) Performed: BRIEF HISTORY: Patient is a 38-year-old, pleasant, male discussion of endoscopy as part of evaluation of intermittent nausea vomiting for the last several years duration. The symptoms happen 3-4 times a week. He denies any heartburn. He denies any dysphagia or odynophagia. His Upper Endoscopy to Evaluate Further.. PROCEDURE PERFORMED: Esophagogastroduodenoscopy with biopsy. PREOPERATIVE DIAGNOSIS: Intermittent nausea vomiting of 70 history. IV sedation per anesthesia. PROCEDURE: After informed consent was obtained, the patient was brought into the endoscopy unit. IV sedation was administered by Anesthesia under continuous monitoring. Initially the Olympus GIF-140 video endoscope was inserted into the mouth. Esophagus intubated without any difficulty. It was gradually advanced into the stomach and duodenum and carefully examined. The bulb and the second part of the duodenum appeared normal. The scope at this time was withdrawn to the stomach, adequately insufflated with air, and upon careful examination, mucosa of the antrum and mild feels gastritis and biopsies were done from this area. There was moderate amount of retained solid food in the stomach suggestive of gastroparesis. The visualized mucosa of the body,and the fundus appeared normal. The scope was then withdrawn into the esophagus. No hernia noted. The GE junction was located at 39 cm from the incisors. Again erosions and 1 superficial ulceration in the distal esophagus consistent with LA grade C reflux esophagitis. Rest of esophagus appeared normal and the patient tolerated the procedure well IMPRESSION: 1. Linear erosions with 1 superficial ulceration in the distal consistent with LA grade C reflux esophagitis. 2. Small hiatal hernia 3. Mild antral gastritis 4. Retained food in the stomach suggestive of gastroparesis. RECOMMENDATIONS: The findings of this examination were discussed with the patient as well as his family. He was advised to follow-up with the biopsy results. Start on Prilosec 20 mg twice daily and follow antireflux measures. Follow-up in the office in 3 to 4 weeks..
[2024-01-14 09:34] VITALS: PULSE 69; RESP 16; TEMP 97.8
[2024-01-14 10:21] VITALS: BP 134/87
== END ==
LOC: ORWHC2ENDO 07:54
PROVIDERS: ATTEND Internal Medicine Gastroenterology
DX: K29.50 Unspecified chronic gastritis without bleeding (principal); K44.9 Diaphragmatic hernia without obstruction or gangrene; K22.10 Ulcer of esophagus without bleeding; E78.5 Hyperlipidemia, unspecified; F20.9 Schizophrenia, unspecified; Z88.8 Allergy status to other drugs, medicaments and biological substances; Z79.899 Other long term (current) drug therapy
CPT/HCPCS: 88305; 43239; J2001; J2704

== ENCOUNTER → 2024-06-06 | Outpatient (CLI) | payer MEDICARE, OTHER ==
[2024-06-06 12:32] LABS: Basophils # (A) 0.01 X 10*3/uL (0.00-0.10); Basophils % (A) 0.2 %; Eosinophils # (A) 0.07 X 10*3/uL (0.04-0.35); Eosinophils % (A) 1.3 %; HCT 41.5 % (39.6-50.0); HGB 14.6 g/dL (13.0-17.0); Lymphocytes # (A) 2.02 X 10*3/uL (0.90-5.00); Lymphocytes % (A) 37.9 %; MCH 30.7 pg (27.0-32.0); MCHC 35.2 g/dL (32.0-37.0); MCV 87.2 FL (80.0-97.0); Mean Platelet Volume 9.5 FL (9.5-12.2); Monocytes # (A) 0.65 X 10*3/uL (0.20-1.00); Monocytes % (A) 12.2 %; NRBC Per 100 WBC 0 X 10*3/uL (0.00-0.01); Neutrophils # (A) 2.54 X 10*3/uL (1.80-7.70); Neutrophils % (A) 47.6 %; Platelet Count 212 X 10*3/uL (140-440); RBC 4.76 X 10*6/uL (4.40-5.60); RDW 11.7 % (11.5-14.5); WBC 5.33 X 10*3/uL (4.50-10.00)
[2024-06-06 12:57] LABS: ALT 60 U/L (10-49); AST 32 U/L (14-35); Albumin 4.7 g/dL (3.8-4.9); Albumin/Globulin Ratio 1.81 Ratio (1.60-3.17); Alkaline Phosphatase 54 U/L (41-126); BUN/Creat Ratio 10.83 Ratio (12.00-20.00); Calcium 9.8 mg/dL (8.7-10.3); Carbon Dioxide 22.6 mmol/L (21.6-31.8); Chloride 106 mmol/L (96-109); Chol/HDL Ratio 3.84 Ratio; Globulin 2.6 g/dL (1.6-3.3); Glucose 102 mg/dL (70-110); LDL Cholesterol,Calculated 76.5 mg/dL (0.0-131.0); Potassium 4.3 mmol/L (3.5-5.5); Sodium 140 mmol/L (135-145); T4, Free (Free Thyroxine) 0.94 ng/dL (0.80-1.80); Total Bilirubin 0.3 mg/dL (0.3-1.2); Total Protein 7.3 g/dL (6.2-8.2)
== END ==
LOC: LABWHC1 08:16
PROVIDERS: ATTEND Nurse Practitioner Family
DX: Z79.899 Other long term (current) drug therapy (principal); E78.5 Hyperlipidemia, unspecified; E55.9 Vitamin D deficiency, unspecified
CPT/HCPCS: 36415; 80053; 80061; 82306; 82607; 83735; 84439; 84443; 85025